=== PATIENT | female | born 1990 | race Caucasian/White ===

== ENCOUNTER 2018-03-26 14:34 | Outpatient (CLI) | payer MEDICAID, SELFPAY ==
[2018-03-26 15:44] LABS: HCG Quant, Pregnancy 1 mIU/mL (1-3)
== END 2018-03-26 14:54 ==
PROVIDERS: Visit Provider Obstetrics & Gynecology
DX: N91.2 Amenorrhea, unspecified (principal)
CPT/HCPCS: 36415; 84702

== ENCOUNTER 2018-05-14 14:34 | Outpatient (CLI) | payer MEDICAID, SELFPAY ==
[2018-05-14 16:10] LABS: HCG Quant, Pregnancy 5945 mIU/mL (1-3)
== END 2018-05-14 14:54 ==
PROVIDERS: Visit Provider Obstetrics & Gynecology
DX: O20.0 Threatened abortion (principal)
CPT/HCPCS: 36415; 84702

== ENCOUNTER 2018-05-17 08:37 | Outpatient (CLI) | payer MEDICAID, SELFPAY ==
[2018-05-17 09:27] LABS: HCG Quant, Pregnancy 13222 mIU/mL (1-3)
== END 2018-05-17 08:57 ==
PROVIDERS: PCP Physician Assistant Medical; Visit Provider Obstetrics & Gynecology
DX: O20.0 Threatened abortion (principal)
CPT/HCPCS: 36415; 84702